=== PATIENT | male | born 1995 | race Caucasian/White ===

== ENCOUNTER 2016-05-09 22:22 | Inpatient (IN) | payer BC ==
[~2016-05-09] VITALS: Ht 172.7 cm; Wt 63.0 kg
[2016-05-09 23:30] LABS: HEMATOCRIT 48.5 % (42-52); MEAN CELL VOLUME 90.7 fL (80-100); MEAN CORPUSCULAR HEMOGLOBIN 33.3 pg (25-34); MEAN CORPUSCULAR HGB CONC 36.7 g/dl (32-36); MEAN PLATELET VOLUME 9.9 fL (7.4-10.4); PLATELET COUNT 370 K/uL (130-400); RED BLOOD COUNT 5.35 M/uL (4.7-6.1); WHITE BLOOD COUNT 13.03 K/uL (4.8-10.8)
--- NOTE | 2016-05-09 23:38 | EMERGENCY ROOM VISIT NOTE ---
History Report prepared by Thania: Mallorie Ramos Under the Supervision of: Dr. Lurdes Conteh D.O. First contact with patient: 23:08 Chief Complaint: MENTAL HEALTH EVALUATION Stated Complaint: 302 History of Present Illness The patient is a 20 year old male who presents to the Emergency Room for a mental health evaluation. The patient states that he does not want to be alive anymore and he does not want to be here. He reports that he is "profoundly bored with life" and has been feeling this way on and off for a couple of months. He notes that he has tried to commit suicide in the past with his dads guns and with knives as well. The patient states that he is usually drinking when he attempts suicide but passes out before he is able to do it. He notes that he has not been in a mental health facility because he does not like to be vulnerable. He states that he works at [employer] and notes that he has been drinking pretty consistently over the last 3 days. The patient states that he has a family history of mental health issues and his mother is an alcoholic. He notes that his left foot is inflamed but he is not sure why and he is experiencing hand pain and swelling after hitting it on something while he was drinking. The patient denies any abdominal pain. Source of History: patient Onset: a couple of months Position: other (mental health) Quality: other (depressed) Timing: constant Associated Symptoms: No abdominal pain Note: He notes that his left foot is inflamed but he is not sure why and he is experiencing hand pain and swelling after hitting it on something while he was drinking. Review of Systems See HPI for pertinent positives & negatives. A total of 10 systems reviewed and were otherwise negative. Past Medical & Surgical Medical Problems: (1) Depression Family History FH: alcoholism Social History Smoking Status: Current Every Day Smoker Drug Use: other (unspecified "history") Marital Status: single Housing Status: lives with friends Occupation Status: employed Current/Historical Medications No Active Prescriptions or Reported Meds Allergies Coded Allergies: Dust (Unverified Allergy, Intermediate, respiratory s/s, 05/10/16) Egg White (Unverified Allergy, Intermediate, GI Distress, 05/10/16) Physical Exam Vital Signs Date Time Temp Pulse Resp B/P Pulse Ox O2 Delivery O2 Flow Rate FiO2 05/10/16 00:20 98 18 135/79 98 Room Air 05/09/16 22:27 36.6 127 16 143/83 97 Room Air Physical Exam General: Very pleasant, smells of alcohol. HEENT: Head - normocephalic and atraumatic Pupils are equal, round, and reactive to light. Extraocular eye muscles are intact, and sclera are anicteric. Nose - moist nasal mucosa without discharge. Mouth - moist buccal mucosa. Oropharynx is nonerythematous and there is no tonsillar exudate or edema noted. Neck: Supple; no JVD, nuchal rigidity, cervical lymphadenopathy. Heart: Regular rate and rhythm. There is a normal S1 and S2 with no murmurs, clicks, or gallops appreciated. Lungs: Clear to auscultation bilaterally with no wheezes, rales, or rhonchi. Abdomen: Soft, completely nontender, nondistended, with good bowel sounds. There are no palpable pulsatile masses or hepatosplenomegaly. There is no guarding, rigidity, or rebound noted. Extremities: No evidence of cyanosis, clubbing. There are easily palpable peripheral pulses. Edema over the left lateral malleolus of his ankle and the thenar eminence of his left hand. Skin: warm and dry with good turgor and no rashes. Psych: Appears significantly depressed, hopeless, and suicidal. Medical Decision & Procedures ER Provider Diagnostic Interpretation: X-ray results as stated below per interpretation by me: Left Ankle X-Ray: Soft tissue edema of the lateral malleolus, no obvious fracture. Laboratory Results 05/09/16 22:47 05/09/16 22:47 Test 05/09/16 00:00 05/09/16 22:47 05/10/16 02:26 Urine Color YELLOW Urine Appearance CLEAR (CLEAR) Urine pH 5.5 (4.5-7.5) Urine Specific [place] 1.012 (1.000-1.030) Urine Protein NEG (NEG) Urine Glucose (UA) 3+ (NEG) Urine Ketones 1+ (NEG) Urine Occult Blood TRACE (NEG) Urine Nitrite NEG (NEG) Urine Bilirubin NEG (NEG) Urine Urobilinogen NEG (NEG) Urine Leukocyte Esterase NEG (NEG) Urine WBC (Auto) 1-5 /hpf (0-5) Urine RBC (Auto) 0-4 /hpf (0-4) Urine Hyaline Casts (Auto) 1-5 /lpf (0-5) Urine Epithelial Cells (Auto) 10-20 /lpf (0-5) Urine Bacteria (Auto) NEG (NEG) Urine Opiates Screen NEG (NEG) Urine Methadone, Qualitative NEG (NEG) Urine Barbiturates NEG (NEG) Urine Phencyclidine (PCP) Level NEG (NEG) Ur Amphetamine/Methamphetamine NEG (NEG) MDMA (Ecstasy) Screen NEG (NEG) Urine Benzodiazepines Screen NEG (NEG) Urine Cocaine Metabolite NEG (NEG) Urine Marijuana (THC) POS (NEG) Red Blood Count 5.35 M/uL (4.7-6.1) Mean Corpuscular Volume 90.7 fL (80-100) Mean Corpuscular Hemoglobin 33.3 pg (25-34) Mean Corpuscular Hemoglobin Concent 36.7 g/dl (32-36) RDW Standard Deviation 43.2 fL (36.4-46.3) RDW Coefficient of Variation 13.1 % (11.5-14.5) Mean Platelet Volume 9.9 fL (7.4-10.4) Anion Gap 16.0 mmol/L (3-11) Est Creatinine Clear Calc Drug Dose 97.4 ml/min Estimated GFR () 109.9 Estimated GFR (Non- 94.8 BUN/Creatinine Ratio 7.8 (10-20) Calcium Level 9.1 mg/dl (8.5-10.1) Total Bilirubin 0.5 mg/dl (0.2-1) Direct Bilirubin < 0.1 mg/dl (0-0.2) Aspartate Amino Transf (AST/SGOT) 22 U/L (15-37) Alanine Aminotransferase (ALT/SGPT) 32 U/L (12-78) Alkaline Phosphatase 70 U/L (45-117) Total Protein 8.6 gm/dl (6.4-8.2) Albumin 4.7 gm/dl (3.4-5.0) Thyroid Stimulating Hormone (TSH) 0.411 uIu/ml (0.300-4.500) Salicylates Level 2.0 mg/dl (2.8-20) Acetaminophen Level < 2 ug/ml (10-30) Ethyl Alcohol mg/dL 143.0 mg/dl (0-3) Bedside Glucose 123 mg/dl (70-99) Laboratory results per my review. ED Course 2313: Past medical records reviewed. The patient was evaluated in room A5. A complete history and physical exam was performed. Labs were drawn as above. 0015: I reevaluated the patient. He has no history of diabetes or family history of diabetes. 0031: I added a hemoglobin A1C to the patient's labs, Since he also has glucosuria 0202: The hemoglobin A1C will not be done tonight. It will be done in the morning. 0222: The patients blood sugar will be repeated to see if it is going up. 0227: The patient's repeat blood sugar was 126. 0335: The patient signed himself in to [address] [place] [address] voluntarily. Medical Decision The patient is a 20 year old male who presents to the ED with ankle pain and a mental health evaluation. Differential diagnosis includes alcohol intoxication, drug abuse, depression, mood disorder, and thought disorder. We will also rule out ankle fracture versus an ankle sprain. LABS: WBC 13 Stable H&H Blood Glucose 252 Potassium 3.2 Normal renal function and TSH Normal LFT Alcohol 143 Acetaminophen <2 Salicylate 2 Urine has 3+ glucose, 1+ ketones, trace occult blood, negative WBC, negative RBC Urine tox screen positive for marijuana This is a 20-year-old male patient who describes a long history of depression and hopelessness. He's had multiple previous thoughts of suicide. The patient has been binge drinking for the past 3 days and presents here slightly intoxicated. Once the patient's blood alcohol level was down, he was evaluated by staff from [facility]. He is willing to admit himself voluntarily for inpatient psychiatric care. Impression Primary Impression: Suicidal ideation Additional Impressions: Hyperglycemia Alcohol intoxication Left ankle sprain Scribe Attestation The scribe's documentation has been prepared under my direction and personally reviewed by me in its entirety. I confirm that the note above accurately reflects all work, treatment, procedures, and medical decision making performed by me. Departure Information Dispostion Mental Health Acute Care Prescriptions No Active Prescriptions or Reported Meds Referrals No Doctor, Assigned (PCP) Patient Instructions My [facility] Problem Qualifiers
[2016-05-09 23:49] LABS: ALT/SGPT 32 U/L (12-78); BLOOD UREA NITROGEN 9 mg/dl (7-18); BUN/CREATININE RATIO 7.8 (10-20); CALCIUM 9.1 mg/dl (8.5-10.1); CARBON DIOXIDE 24 mmol/L (21-32); CHLORIDE 98 mmol/L (98-107); GLUCOSE 252 mg/dl (70-99); POTASSIUM 3.2 mmol/L (3.5-5.1); SODIUM 138 mmol/L (136-145)
[2016-05-09 23:59] LABS: ACETAMINOPHEN < 2 ug/ml (10-30)
[2016-05-10] LABS: ALKALINE PHOSPHATASE 70 U/L (45-117); AST/SGOT 22 U/L (15-37); THYROID STIMULATING HORMONE 0.411 uIu/ml (0.300-4.500)
[2016-05-10 00:26] LABS: URINE APPEARANCE CLEAR (CLEAR); URINE BILIRUBIN NEG (NEG); URINE COLOR YELLOW; URINE NITRITE NEG (NEG); URINE PH 5.5 (4.5-7.5); URINE SPECIFIC GRAVITY 1.012 (1.000-1.030); UROBILINOGEN NEG (NEG)
[2016-05-10 00:27] LABS: MANUAL MICROSCOPIC REQUIRED? NO; REVIEW REQ? NO
[2016-05-10 00:45] LABS: BENZODIAZEPINE, URINE NEG (NEG); COCAINE,URINE NEG (NEG); PHENCYCLIDINE, URINE NEG (NEG)
[2016-05-10] MEDS ORDERED: NURSING VERBAL MED ORDER ONE (03:15)
[2016-05-10] MEDS ORDERED: LORAZEPAM 1 MG TAB PO PRN (03:45)
[2016-05-10] MEDS ORDERED: MAGNESIUM HYDROXIDE SUSP 30 ML UDC PO PRN (03:45)
[2016-05-10] MEDS ORDERED: ALUMINUM/MAGNESIUM SUSP 30 ML UDC PO PRN (03:45)
[2016-05-10] MEDS ORDERED: SODIUM CHLORIDE 0.65% NA SOLN 45 ML (OCEAN) PRN (03:45)
[2016-05-10] MEDS ORDERED: BISMUTH SUBSALICYLATE PER ML OMNICELL CHARGE PO PRN (03:45)
[2016-05-10 03:58] VITALS: O2SAT 98
[2016-05-10 04:12] VITALS: BP 137/80; PULSE 104; TEMP 36.9; Ht 172.7 cm; Wt 63.0 kg
[2016-05-10 06:10] LABS: ESTIMATED AVERAGE GLUCOSE 97 mg/dl; HA1C FLAG Normal (Normal)
[2016-05-10] MEDS: ACETAMINOPHEN 325 MG TAB PO PRN ×2 (06:21→23:40)
--- NOTE | 2016-05-10 06:40 | DIAGNOSTIC IMAGING REPORT ---
LEFT ANKLE MIN 3 VIEWS ROUTINE CLINICAL HISTORY: Trauma and swelling lateral COMPARISON: None FINDINGS: Alignment of the left ankle is anatomic. There is no acute fracture. Talar dome is intact. There is mild lateral ankle soft tissue swelling. IMPRESSION: 1. No acute fracture or dislocation of the left ankle. 2. Mild lateral ankle soft tissue swelling. Electronically signed by: Ike Hernandez M.D. 05/10/2016 6:38 AM Dictated Date/Time: 05/10/2016 6:37 AM
[2016-05-10 08:05] VITALS: BP 116/74; PULSE 79; TEMP 36.4
[2016-05-10] MEDS: NICOTINE 21 MG/24 HR TDSY EXT SCH (08:46)
[2016-05-10 12:14] VITALS: BP 134/81; PULSE 111; TEMP 36.5
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
[2016-05-10 16:03] VITALS: BP 129/85; PULSE 96; TEMP 37
[2016-05-10 20:42] VITALS: BP 134/79; PULSE 93; TEMP 36.3
[2016-05-10] MEDS: hydrOXYzine HCL 25 MG TAB PO PRN (23:39)
[2016-05-11 06:41] VITALS: BP_SYST 116; BP_SYST 118; BP_DIAS 62; BP_DIAS 73; PULSE 43; PULSE 52; TEMP 36.6
[2016-05-11] MEDS: hydrOXYzine HCL 25 MG TAB PO PRN ×3 (07:10→23:37)
[2016-05-11] MEDS: NICOTINE 21 MG/24 HR TDSY EXT SCH (07:14)
[2016-05-11 07:52] LABS: POTASSIUM 3.7 mmol/L (3.5-5.1)
[2016-05-11 08:14] VITALS: BP 122/75; PULSE 88; TEMP 36.6
--- NOTE | 2016-05-11 11:42 | Psychiatric Progress Notes ---
Progress Note Date of Service May 11, 2016. Interval History 20 yo male admitted 05/10 on a voluntary basis with a back up 302 petitioners statement, with severe depression and suicidality along with significant substance abuse. He has recently gone through several breakups, lost a job and sees his life in a downward spiral. Chief Complaint "Up and down, but better.". Subjective Patient was seen & assessed interval progress reviewed with Treatment Team. The patient says that he had a good visit from his father last evening. He told his father of the substance use and his father was not judgemental. Father admitted that he himself had made a suicide attempt at one point in his life. Yan feels well supported by his father, and several friends who came to visit him as well. He has been thinking about his treatment options and has decided that its a good idea to go on an antidepressant, but does not want to go to rehab. He wants to try to avoid people in his life who are using, and to focus on productive activities such as work and trying to get ahead financially. He admits that he had SI thoughts this AM when he awoke but after getting some breakfast and showering he felt better. Review of Systems Constitutional: + fatigue ENT: No dental problems, No hearing loss, No nasal symptoms, No problem reported, No sore throat, No tinnitus, No trouble swallowing, No unusual epistaxis Respiratory: No cough, No dyspnea at rest, No dyspnea on exertion, No hemoptysis, No problem reported, No shortness of breath, No sputum, No wheezing Cardiovascular: No PND, No chest pain, No claudication, No edema, No orthopnea , No palpitations, No problem reported Abdomen: No GI bleeding, No constipation, No diarrhea, No nausea, No pain, No problem reported, No vomiting Musculoskeletal: + problem reported (rt ankle pain) Neurologic: No balance problems, No memory loss, No numbness/tingling, No paralysis, No problem reported, No vertigo, No weakness Psychiatric: + anxiety, + depression symptoms Integumentary: No bleeding, No color change, No itch, No new/changing skin lesions, No problem reported, No rash Sleep Information Total Hours of Sleep: 5.50 Meal Information Percent of Breakfast Consumed: 80 Percent of Lunch Consumed: 100 Percent of Dinner Consumed: 100 Mental Status Exam During interview pt is: alert and oriented, cooperative Appearance: appropriately dressed, appropriately groomed Eye contact is: good Motor behavior is: steady gait & station (with slight limp) Speech: normal in rate, rhythm & volume Affect: blunted Mood is: depressed Thought process: goal directed Thought content: reality based without delusions Suicidal thought are: present, Plan: denied, Intent: denied Homicidal thoughts are: denied Hallucinations: denies auditory, denies visual Cognition: memory grossly intact, attention grossly intact Intelligence estimated to be: average Insight: impaired Judgement: impaired Impression Patient is adjusting to the support and structure of the unit. Finding support from father and friends. Now willing for meds and so will start Zoloft 25 mg. today increasing to 50 mg. tomorrow. R/B/A reviewed and accepted. He is refusing rehab but willing to go to IOP, so will proceed with a referral. He will also need psychiatric follow up. Plan (1) Major depressive disorder, recurrent severe without psychotic features 05/11 - Start Zoloft 25 mg. today increasing to 50 mg. tomorrow - Q 15 min checks for safety - Encourage participation in group and individual counseling - Will need psychiatric follow up - Family meeting (2) Alcohol dependence 05/11 - AWSS using prn ativan - Recommend inpatient rehab which the patient is refusing - Willing for IOP, so will make referral - Recovery protocol (3) Polysubstance abuse 05/11 - REcommend rehab which he is refusing - Willing for IOP so will make referral - Recovery protocol Discharge / Aftercare Planning Primary Care Physician: Name: none, in [facility] though Therapist: Name: Would like to see Virgil Cabrales Visit Code E&M Code: 14501 Risk Factors Assessment Male: Yes : Yes /single/: Yes Higher / Fall in social status: No Access to guns: No Health problems: No Mental Health Diagnoses: No Substance use disorders: Yes Previous attempt: No Previous psychiatric stay: No Hopelessness: Yes Smoker: Yes Protective Factors Assessment Jainism beliefs: Yes : No Responsible for young children: No Employed: Yes Stable relationships: No Supportive family: Yes Data Vital Signs Last 24 Hrs: Date Time Temp Pulse Resp B/P Pulse Ox O2 Delivery O2 Flow Rate FiO2 05/11/16 08:14 36.6 88 16 122/75 05/11/16 06:41 36.6 43 16 116/73 52 118/62 05/10/16 20:42 36.3 93 16 134/79 05/10/16 16:03 37.0 96 16 129/85 05/10/16 12:14 36.5 111 16 134/81 Meds Administered Last 24 Hrs: Meds Administered (Past 24Hrs) Medications (Trade) Dose Ordered Sig/Baljeet Route Start Time Stop Time Status Last Admin Dose Admin Acetaminophen (Tylenol Tab) 650 mg Q4H PRN PO 05/10/16 03:45 06/09/16 03:44 05/10/16 23:40 650 MG Hydroxyzine HCl (Vistaril Tab) 50 mg HSZ PRN PO 05/10/16 03:45 06/09/16 03:44 05/10/16 23:39 50 MG Hydroxyzine HCl (Vistaril Tab) 25 mg Q4H PRN PO 05/10/16 03:45 06/09/16 03:44 05/11/16 07:10 25 MG Nicotine (Nicoderm Cq 21MG Patch) 1 patch QAM EXT 05/10/16 09:00 06/09/16 08:59 05/11/16 07:14 1 PATCH Miscellaneous (Remove Nicoderm Patch) 1 ea QAM N/A 05/11/16 09:00 06/10/16 08:59 05/11/16 07:11 1 EA Lab Results Last 24 Hrs: Last 24 Hours Test 05/11/16 07:00 Potassium Level 3.7 mmol/L Fasting Glucose 93 mg/dl Problem Qualifiers (1) Alcohol dependence: Substance use status: uncomplicated Qualified Codes: F10.20 - Alcohol dependence, uncomplicated
[2016-05-11] MEDS ORDERED: SERTRALINE HCL 50 MG TAB PO ONE (12:00)
[2016-05-11 12:42] VITALS: BP 131/81; PULSE 103; TEMP 36.6
[2016-05-11 16:01] VITALS: BP 126/80; PULSE 95; TEMP 36.3
[2016-05-11 18:05] VITALS: BP 133/79; PULSE 98; TEMP 36.5
[2016-05-11 20:43] VITALS: BP 133/82; PULSE 98; TEMP 36.5
[2016-05-11] MEDS: ACETAMINOPHEN 325 MG TAB PO PRN (23:05)
[2016-05-12 06:48] VITALS: BP 114/76; PULSE 76; TEMP 36.5
--- NOTE | 2016-05-12 09:04 | Psychiatric Progress Notes ---
Progress Note Date of Service May 12, 2016. Interval History 20 yo male admitted 05/10 on a voluntary basis with a back up 302 petitioners statement, with severe depression and suicidality along with significant substance abuse. He has recently gone through several breakups, lost a job and sees his life in a downward spiral. Chief Complaint "Better". Subjective Patient was seen & assessed interval progress reviewed with staff. He is going to groups, but shows poor insight into his substance abuse. He says he is " doing well, just catching up on some sleep, feeling good." He says he is working on coping skills and "figuring out triggers, how to stay away from those." He thinks his triggers are "predisposition to narcotics, and suicidal tendencies." He reports "a lack of motivation to live" when he is feeling suicidal, "keep finding more excuses as to why you're life is bad, just analyzing how awful everything is." His mood is improving here, he thinks due to talking to others. He says he "wouldn't mind increasing the Zoloft, I took it yesterday and it did help. I think I might need an ADHD medication." Discussed concerns with stimulants and that they are contraindicated due to his addictions. He says he is willing to see outpatient providers only if they fit into his time schedule, and is willing to admit he might benefit from getting substance abuse treatment, and says he is willing to be stop using. His father is coming in for a meeting this afternoon and he wants to talk to him about "everything, see what he would suggest for treatment." He continues to have SI, but it is less intense and lasts about 5 minutes, but denies intent and feels safe here. He thinks his substance abuse triggered his SI. Sleep Information Total Hours of Sleep: 5.50 Meal Information Percent of Breakfast Consumed: 80 Percent of Lunch Consumed: 100 Percent of Dinner Consumed: 95 Mental Status Exam During interview pt is: alert and oriented, cooperative Appearance: appropriately dressed, disheveled (got out of bed for interview) Eye contact is: good Motor behavior is: steady gait & station, no abnormal motor movements Speech: normal in rate, rhythm & volume Affect: blunted (incongruent with stated mood) Mood is: other ("better") Thought process: goal directed Thought content: reality based without delusions Suicidal thought are: present, Plan: denied, Intent: denied Homicidal thoughts are: denied Hallucinations: denies auditory, denies visual Cognition: memory grossly intact, attention grossly intact Intelligence estimated to be: average Insight: impaired Judgement: impaired Impression Patient is adjusting to the support and structure of the unit. Finding support from father and friends. Now willing for meds and so will start Zoloft 25 mg. today increasing to 50 mg. tomorrow. R/B/A reviewed and accepted. He is refusing rehab but willing to go to [facility], so will proceed with a referral. He will also need psychiatric follow up. Plan (1) Major depressive disorder, recurrent severe without psychotic features 05/11 - Start Zoloft 25 mg. today increasing to 50 mg. tomorrow - Q 15 min checks for safety - Encourage participation in group and individual counseling - Will need psychiatric follow up - Family meeting 05/12 - Increase sertraline to 50mg, tolerating well so far. - Family meeting with father. (2) Alcohol dependence 05/11 - AWSS using prn ativan - Recommend inpatient rehab which the patient is refusing - Willing for IOP, so will make referral - Recovery protocol 05/12 - Scored on withdrawal protocol and received Ativan with good effects. Still mildly tachycardic. Continue to monitor. - The patient's AUDIT score suggests problematic drinking (Zone III WHO). Brief intervention was offered and accepted. Intervention was greater than 5 min in length. - Intervention included: 1. Assess Readiness to Quit, 2. Advise: Help Patient to Reduce or Abstain from Alcohol, 3. Agree: Set Specific, Feasible Goals, 4. Assist: Anticipate barriers, Problem-Solving Solutions. Social work to 5. Arrange: Referrals to appropriate treatment. Summary of intervention: The patient is advised to abstain from alcohol due to depressant effects, physiological dependence, and risk of interactions with prescription medications. The patient agreed to abstain from alcohol and drug use, and will be provided with recovery materials to continue to education self on how to cope with their condition without drinking. - Being referred to [facility] substance abuse treatment. (3) Polysubstance abuse 05/11 - Recommend rehab which he is refusing - Willing for IOP so will make referral - Recovery protocol 05/12 - Again reviewed risks of ongoing substance abuse and recommendations for abstinence. Patient states he agrees his drug use is negatively impacting his mood and contributing to his SI. He is willing to abstain per recommendations. - He is being referred to IOP. Encouraged to accept whatever help he can get , despite his earlier statements that he would only go if appointments could be scheduled during specific timeframe that suited his schedule. Also encouraged use of peer support groups such as NA and AA which may have more flexible time options. Discharge / Aftercare Planning Primary Care Physician: Name: none, in [facility] though Therapist: Name: Would like to see Virgil Cabrales Visit Code E&M Code: 04836 Risk Factors Assessment Male: Yes : Yes /single/: Yes Higher / Fall in social status: No Access to guns: No Health problems: No Mental Health Diagnoses: No Substance use disorders: Yes Previous attempt: No Previous psychiatric stay: No Hopelessness: Yes Smoker: Yes Protective Factors Assessment Rastafari beliefs: Yes : No Responsible for young children: No Employed: Yes Stable relationships: No Supportive family: Yes Data Vital Signs Last 24 Hrs: Date Time Temp Pulse Resp B/P Pulse Ox O2 Delivery O2 Flow Rate FiO2 05/12/16 06:48 36.5 76 16 114/76 05/11/16 20:43 36.5 98 16 133/82 05/11/16 18:05 36.5 98 16 133/79 05/11/16 16:01 36.3 95 16 126/80 05/11/16 12:42 36.6 103 16 131/81 Meds Administered Last 24 Hrs: Meds Administered (Past 24Hrs) Medications (Trade) Dose Ordered Sig/Baljeet Route Start Time Stop Time Status Last Admin Dose Admin Nicotine (Nicoderm Cq 21MG Patch) 1 patch QAM EXT 05/10/16 09:00 06/09/16 08:59 05/11/16 07:14 1 PATCH Miscellaneous (Remove Nicoderm Patch) 1 ea QAM N/A 05/11/16 09:00 06/10/16 08:59 05/11/16 07:11 1 EA Sertraline HCl (Zoloft Tab) 25 mg NOW ONCE PO 05/11/16 12:00 05/11/16 12:01 DC 05/11/16 12:25 25 MG Problem Qualifiers (1) Alcohol dependence: Substance use status: uncomplicated Qualified Codes: F10.20 - Alcohol dependence, uncomplicated
[2016-05-12 09:34] VITALS: BP 140/83; PULSE 88; TEMP 37
[2016-05-12] MEDS: NICOTINE 21 MG/24 HR TDSY EXT SCH (09:35)
[2016-05-12] MEDS: SERTRALINE HCL 50 MG TAB PO SCH (09:35)
[2016-05-12] MEDS: hydrOXYzine HCL 25 MG TAB PO PRN ×4 (11:03→23:50)
[2016-05-12 12:35] VITALS: BP 106/74; PULSE 79; TEMP 36.4
[2016-05-12] MEDS: ACETAMINOPHEN 325 MG TAB PO PRN (15:58)
[2016-05-12 16:08] VITALS: BP 125/75; PULSE 96; TEMP 37.2
[2016-05-12 20:14] VITALS: BP 123/85; PULSE 91; TEMP 36.5
[2016-05-13 07:02] VITALS: BP_SYST 112; BP_SYST 114; BP_DIAS 73; BP_DIAS 75; PULSE 66; PULSE 72; TEMP 36.4
[2016-05-13] MEDS: NICOTINE 21 MG/24 HR TDSY EXT SCH (09:19)
[2016-05-13] MEDS: SERTRALINE HCL 50 MG TAB PO SCH (09:19)
[2016-05-13] MEDS ORDERED: ZLF50 PO (09:20)
[2016-05-13 09:22] VITALS: BP 131/80; PULSE 90; TEMP 36.6
--- NOTE | 2016-05-13 09:30 | Discharge Instructions ---
Discharge Information Report Includes Report will include the: Discharge Instructions & Summary Admission Admission Date / Time: May 10, 2016 at 03:29 Reason for Admission: Major Depressive Disorder, Recurrent Discharge Discharge Diagnosis / Problem: Depression, alcohol dependence, polysubstance abuse Condition at Discharge: Good Discharge Goals Goal(s): Decrease discomfort, Improve disease control, Prevent Disease Progression Activity Recommendations Activity Limitations: resume your previous activity . Instructions / Follow-Up Instructions / Follow-Up . SPECIAL CARE INSTRUCTIONS: 1. Follow through with your scheduled aftercare appointments. If unable to keep an appointment, please call to reschedule. 2. Take your medication only as prescribed. Medication should not be changed or stopped without the approval of your doctor. In the event of worsening symptoms or concerns about side effects, contact your doctor immediately. 3. Utilize new healthy coping skills, anger management skills, and stress management skills learned during your hospitalization. Journal feelings and process them with a support person. Identify stressors or situations that may result in relapse, deterioration or inappropriate behaviors and develop a plan to deal with those issues. 4. If your coping skills are ineffective and you are in crisis, contact your outpatient providers for direction. If unable to reach your providers, please call the CAN HELP LINE AT or go to the closest Emergency Room. 5. Avoid alcohol and un-prescribed drugs. 6. You have been provided with the Mental Health Advance Directives Pamphlet for your review. AFTERCARE APPOINTMENTS: * Please call your insurance company prior to your scheduled appointment to confirm your aftercare providers are covered. Take your insurance information to your appointments. . Discharge / Aftercare Planning Primary Care Physician: Name: [facility]. [facility] Date of Appointment: Jun 02, 2016 Time of Appointment: 10:10 Appointment Notes: (new pt appt) Psychiatrist: Name: Ada will schedule after you maintain services for therapy Therapist: Name Of Therapist: Radha Caballero Date of Appointment: May 17, 2016 Time of Appointment: 8:45am Other: Name of Appointment #1: Ada [address] [place] [address], [address] Date of Appointment #1: May 17, 2016 Time of Appointment #1: 8:45 . Follow-Up Care Plan for Follow-Up Care: The patient will have prompt follow up with [facility] for psychiatric and substance use treatment. Current Hospital Diet Patient's current hospital diet: Regular Diet Discharge Diet Recommended Diet: Regular Diet Procedures Procedures Performed: No Pending Studies Pending Studies at Discharge: No Medical Emergencies . Who to Call and When: Medical Emergencies: For questions or emergencies related to your hospital stay, please contact the Inpatient Behavioral Health Unit at [phone]. A stem processing machine operator is on-call 14/11 for the Behavioral Health Unit for emergencies At any time you feel your situation is an emergency, you may also call 911 immediately. . Non-Emergent Contact Non-Emergency issues call your: Primary Care Provider, Therapist Advance Directives Existing Advance Directive: No Do You Have an Existing Mental: No Existing Living Will: No Existing Power of Shoe Salesman: No Advance Directives Info Given: To Pt/S.O. Discharge Summary Admission HPI Per the Admitting provider: Please see attached H&P Hospital Course (1) Major depressive disorder, recurrent severe without psychotic features 05/11 - Start Zoloft 25 mg. today increasing to 50 mg. tomorrow - Q 15 min checks for safety - Encourage participation in group and individual counseling - Will need psychiatric follow up - Family meeting 05/12 - Increase sertraline to 50mg, tolerating well so far. - Family meeting with father. (2) Alcohol dependence 05/11 - AWSS using prn ativan - Recommend inpatient rehab which the patient is refusing - Willing for IOP, so will make referral - Recovery protocol 05/12 - Scored on withdrawal protocol and received Ativan with good effects. Still mildly tachycardic. Continue to monitor. - The patient's AUDIT score suggests problematic drinking (Zone III WHO). Brief intervention was offered and accepted. Intervention was greater than 5 min in length. - Intervention included: 1. Assess Readiness to Quit, 2. Advise: Help Patient to Reduce or Abstain from Alcohol, 3. Agree: Set Specific, Feasible Goals, 4. Assist: Anticipate barriers, Problem-Solving Solutions. Social work to 5. Arrange: Referrals to appropriate treatment. Summary of intervention: The patient is advised to abstain from alcohol due to depressant effects, physiological dependence, and risk of interactions with prescription medications. The patient agreed to abstain from alcohol and drug use, and will be provided with recovery materials to continue to education self on how to cope with their condition without drinking. - Being referred to [facility] substance abuse treatment. (3) Polysubstance abuse 05/11 - Recommend rehab which he is refusing - Willing for [facility] so will make referral - Recovery protocol 05/12 - Again reviewed risks of ongoing substance abuse and recommendations for abstinence. Patient states he agrees his drug use is negatively impacting his mood and contributing to his SI. He is willing to abstain per recommendations. - He is being referred to [facility]. Encouraged to accept whatever help he can get , despite his earlier statements that he would only go if appointments could be scheduled during specific timeframe that suited his schedule. Also encouraged use of peer support groups such as NA and AA which may have more flexible time options. Risk Factors Assessment Male: Yes : Yes /single/: Yes Higher / Fall in social status: No Access to guns: No Health problems: No Mental Health Diagnoses: No Substance use disorders: Yes Previous attempt: No Previous psychiatric stay: No Hopelessness: Yes Smoker: Yes Protective Factors Assessment Gnosticist beliefs: Yes : No Responsible for young children: No Employed: Yes Stable relationships: No Supportive family: Yes Day of Discharge Assessment COURSE OF HOSPITALIZATION: During the patient's 3 day stay, he was started on Zoloft 50 mg and tolerated this without side effect. He had been increasingly depressed over time in the context of multiple breakups with girlfriends and ongoing substance use most specifically alcohol, marijuana, cocaine, LSD, mushrooms, and will nitrate, and Adderall. We put him on an AWSS withdrawal protocol and did not trigger the use of benzodiazepines. He made good use of group and individual therapy, recognizing that he needs to be in treatment and avoid substances. We recommended inpatient rehabilitation which he refused but was willing to participate in outpatient counseling and therefore [facility]. He recognizes the need to change the people he hangs out with. He was motivated to return to his work at [employer] and in addition had plans for other ways that he can improve his financial situation. He ceased to have suicidal ideation, reported improved mood and felt ready for discharge. DAY OF DISCHARGE ASSESSMENT: The patient is requesting discharge. He says that his mood is "good" and he feels ready to go home. He would like to return to work as soon as possible. He had a family meeting with his father yesterday which she described as "fantastic" and feels well supported by him. He remains committed to sobriety, denies suicidal thinking. Today he is casually and appropriately dressed. Eye contact is good. Gait and station are within normal limits. Speech is of normal rate volume and tone. Affect remains blunted. Thoughts are organized and goal-directed, and without evidence of thought disorder. Recent and remote memory are intact per conversation, intelligence is estimated to be average. Insight and judgment are improved over admission. Laboratory 05/09/16 22:47 05/09/16 22:47 05/11/16 07:00 Test 05/09/16 00:00 05/09/16 22:47 05/10/16 02:26 05/11/16 07:00 Urine Color YELLOW Urine Appearance CLEAR (CLEAR) Urine pH 5.5 (4.5-7.5) Urine Specific [place] 1.012 (1.000-1.030) Urine Protein NEG (NEG) Urine Glucose (UA) 3+ (NEG) Urine Ketones 1+ (NEG) Urine Occult Blood TRACE (NEG) Urine Nitrite NEG (NEG) Urine Bilirubin NEG (NEG) Urine Urobilinogen NEG (NEG) Urine Leukocyte Esterase NEG (NEG) Urine WBC (Auto) 1-5 /hpf (0-5) Urine RBC (Auto) 0-4 /hpf (0-4) Urine Hyaline Casts (Auto) 1-5 /lpf (0-5) Urine Epithelial Cells (Auto) 10-20 /lpf (0-5) Urine Bacteria (Auto) NEG (NEG) Urine Opiates Screen NEG (NEG) Urine Methadone, Qualitative NEG (NEG) Urine Barbiturates NEG (NEG) Urine Phencyclidine (PCP) Level NEG (NEG) Ur Amphetamine/Methamphetamine NEG (NEG) MDMA (Ecstasy) Screen NEG (NEG) Urine Benzodiazepines Screen NEG (NEG) Urine Cocaine Metabolite NEG (NEG) Urine Marijuana (THC) POS (NEG) Urine Marijuana (THC Carboxy Acid) 44 NG/ML (CUTOFF=5) Red Blood Count 5.35 M/uL (4.7-6.1) Mean Corpuscular Volume 90.7 fL (80-100) Mean Corpuscular Hemoglobin 33.3 pg (25-34) Mean Corpuscular Hemoglobin Concent 36.7 g/dl (32-36) RDW Standard Deviation 43.2 fL (36.4-46.3) RDW Coefficient of Variation 13.1 % (11.5-14.5) Mean Platelet Volume 9.9 fL (7.4-10.4) Anion Gap 16.0 mmol/L (3-11) Est Creatinine Clear Calc Drug Dose 97.4 ml/min Estimated GFR () 109.9 Estimated GFR (Non- 94.8 BUN/Creatinine Ratio 7.8 (10-20) Estimated Average Glucose 97 mg/dl Hemoglobin A1c 5.0 % (4.5-5.6) Calcium Level 9.1 mg/dl (8.5-10.1) Total Bilirubin 0.5 mg/dl (0.2-1) Direct Bilirubin < 0.1 mg/dl (0-0.2) Aspartate Amino Transf (AST/SGOT) 22 U/L (15-37) Alanine Aminotransferase (ALT/SGPT) 32 U/L (12-78) Alkaline Phosphatase 70 U/L (45-117) Total Protein 8.6 gm/dl (6.4-8.2) Albumin 4.7 gm/dl (3.4-5.0) Thyroid Stimulating Hormone (TSH) 0.411 uIu/ml (0.300-4.500) Salicylates Level 2.0 mg/dl (2.8-20) Acetaminophen Level < 2 ug/ml (10-30) Ethyl Alcohol mg/dL 143.0 mg/dl (0-3) Bedside Glucose 123 mg/dl (70-99) Fasting Glucose 93 mg/dl (70-99) Total Time Total Time Spent (min): Greater than 30 minutes Total Time Included: examination of the patient, discharge planning, medication reconciliation, communication with other providers Tobacco Cessation at Discharge FDA approved Prescription: patient refused Problem Qualifiers (1) Alcohol dependence: Substance use status: uncomplicated Qualified Codes: F10.20 - Alcohol dependence, uncomplicated
== END 2016-05-13 11:53 | disposition home or self-care (01) | DRG 885 ==
LOC: C.EDB 22:23 → C.MHU 05-10 03:29
PROVIDERS: ADMIT Psychiatry & Neurology Child & Adolescent Psychiatry; ATTEND Psychiatry & Neurology Psychiatry
DX: F33.2 Major depressive disorder, recurrent severe without psychotic features (principal); R45.851 Suicidal ideations; F90.9 Attention-deficit hyperactivity disorder, unspecified type; F41.9 Anxiety disorder, unspecified; Z91.048 Other nonmedicinal substance allergy status; Z91.012 Allergy to eggs; F17.210 Nicotine dependence, cigarettes, uncomplicated; Z81.8 Family history of other mental and behavioral disorders; Z81.1 Family history of alcohol abuse and dependence; Z84.89 Family history of other specified conditions; Z62.810 Personal history of physical and sexual abuse in childhood; F10.20 Alcohol dependence, uncomplicated; F19.10 Other psychoactive substance abuse, uncomplicated; R00.0 Tachycardia, unspecified

== ENCOUNTER 2016-08-06 20:44 | Inpatient (IN) | payer BC ==
[~2016-08-06] VITALS: Ht 172.7 cm; Wt 62.4 kg
[~2016-08-06 20:44] MED LIST: ZLF50 PO
[2016-08-06] MEDS ORDERED: ONDANSETRON 4MG OD TAB PO ONE (21:15)
--- NOTE | 2016-08-06 21:16 | EMERGENCY ROOM VISIT NOTE ---
History Report prepared by Thania: Chandler Kelly Under the Supervision of: Dr. Amor Simon D.O. First contact with patient: 20:51 Chief Complaint: MENTAL HEALTH EVALUATION Stated Complaint: 302,DRUNK History of Present Illness The patient is a 21 year old male who presents to the Emergency Room for a mental health evaluation. The patient was admitted here in [address] [place] [address] three months ago. He was discharged with a months worth of Zoloft and the diagnosis of Manic Bipolar disorder. He states that the medication did not help him, and he stopped taking it after the first month. The patient began drinking alcohol 9 hours ago. About an hour ago, he was with his friends telling them that he was going to kill himself and to prepare themselves for it. He states that he was going to slice his throat with a knife. Nothing in particular caused him to make this decision. He said that it is an accumulation of life events. Tonight, he drank beer and liquor. He has a past social history of using many illicit drugs, but claims to not have taken any tonight. He denies any IV drug use. He was vomiting and is very nauseated. He says that he tends to drink alcohol every single day and that he is an alcoholic. He does not take any other medications. His only past surgery was an occipital skull fracture repair. He has only had broken bones in the past. His girlfriend called the police tonight before the patient could hurt himself. Source of History: patient Onset: tonight Position: other (global) Symptom Intensity: severe Quality: other (mental health evaluation) Timing: constant Associated Symptoms: + nausea, + vomiting Note: He has a suicidal ideation. He denies any homicidal ideation. Review of Systems See HPI for pertinent positives & negatives. A total of 10 systems reviewed and were otherwise negative. Past Medical & Surgical Medical Problems: (1) Alcohol dependence (2) Depression (3) Polysubstance abuse Family History FH: alcoholism Social History Smoking Status: Current Every Day Smoker Alcohol Use: occasionally Drug Use: other Marital Status: single Housing Status: lives with friends Occupation Status: employed Current/Historical Medications Scheduled Sertraline (Zoloft), 50 MG PO DAILY Allergies Coded Allergies: Dust (Unverified Allergy, Intermediate, respiratory s/s, 08/06/16) Egg White (Unverified Allergy, Intermediate, GI Distress, 08/06/16) Shellfish (Unverified Allergy, Unknown, unknown, 08/07/16) Physical Exam Vital Signs Date Time Temp Pulse Resp B/P Pulse Ox O2 Delivery O2 Flow Rate FiO2 08/07/16 04:30 111 16 118/53 97 Room Air 08/07/16 02:10 80 18 128/76 97 Room Air 08/07/16 00:17 78 20 134/91 98 Room Air 08/06/16 22:52 76 20 116/73 97 Room Air 08/06/16 20:47 36.6 118 16 142/85 95 Room Air Physical Exam GENERAL: Patient is awake, alert, mildly anxious appearing, but overall comfortable in appearance. Able to ambulate without difficulty. EYES: The conjunctivae are clear. The pupils are round and reactive. EARS, NOSE, MOUTH AND THROAT: The nose is without any evidence of any deformity. Mucous membranes are moist tongue is midline NECK: The neck is nontender and supple. RESPIRATORY: Normal respiratory effort is noted there is no evidence of wheezing rhonchi or rales CARDIOVASCULAR: Regular rate and rhythm noted there no murmurs rubs or gallops normal S1 normal S2 GASTROINTESTINAL: The abdomen is soft. Bowel sounds are present in all quadrants. Abdomen is nontender MUSCULOSKELETAL/EXTREMITIES: There is no evidence of gross deformity full range of motion is noted in the hips and shoulders SKIN: There is no obvious evidence of any rash. There are no petechiae, pallor or cyanosis noted. NEUROLOGIC: Patient is awake alert and oriented x3 strength is symmetric patellar reflexes are 2+ bilaterally PSYCH: Affect was flat, patient continues to admit suicidal ideation with plans to cut himself. He makes good eye contact. Medical Decision & Procedures Laboratory Results 08/06/16 21:36 Red Blood Count 5.32, Mean Corpuscular Volume 90.8, Mean Corpuscular Hemoglobin 32.3, Mean Corpuscular Hemoglobin Concent 35.6, Mean Platelet Volume 9.4, Neutrophils (%) (Auto) 77.1, Lymphocytes (%) (Auto) 18.5, Monocytes (%) (Auto) 3.6, Eosinophils (%) (Auto) 0.2, Basophils (%) (Auto) 0.2, Neutrophils # (Auto) 15.12, Lymphocytes # (Auto) 3.62, Monocytes # (Auto) 0.70, Eosinophils # (Auto) 0.03, Basophils # (Auto) 0.03 08/06/16 21:36 Test 08/06/16 21:36 08/07/16 00:08 08/07/16 04:40 White Blood Count 19.58 K/uL (4.8-10.8) Red Blood Count 5.32 M/uL (4.7-6.1) Hemoglobin 17.2 g/dL (14.0-18.0) Hematocrit 48.3 % (42-52) Mean Corpuscular Volume 90.8 fL (80-100) Mean Corpuscular Hemoglobin 32.3 pg (25-34) Mean Corpuscular Hemoglobin Concent 35.6 g/dl (32-36) Platelet Count 352 K/uL (130-400) Mean Platelet Volume 9.4 fL (7.4-10.4) Neutrophils (%) (Auto) 77.1 % Lymphocytes (%) (Auto) 18.5 % Monocytes (%) (Auto) 3.6 % Eosinophils (%) (Auto) 0.2 % Basophils (%) (Auto) 0.2 % Neutrophils # (Auto) 15.12 K/uL (1.4-6.5) Lymphocytes # (Auto) 3.62 K/uL (1.2-3.4) Monocytes # (Auto) 0.70 K/uL (0.11-0.59) Eosinophils # (Auto) 0.03 K/uL (0-0.5) Basophils # (Auto) 0.03 K/uL (0-0.2) RDW Standard Deviation 42.8 fL (36.4-46.3) RDW Coefficient of Variation 12.8 % (11.5-14.5) Immature Granulocyte % (Auto) 0.4 % Immature Granulocyte # (Auto) 0.08 K/uL (0.00-0.02) Anion Gap 17.0 mmol/L (3-11) Est Creatinine Clear Calc Drug Dose 92.2 ml/min Estimated GFR () 109.1 Estimated GFR (Non- 94.1 BUN/Creatinine Ratio 13.5 (10-20) Calcium Level 9.5 mg/dl (8.5-10.1) Total Bilirubin 0.5 mg/dl (0.2-1) Direct Bilirubin 0.1 mg/dl (0-0.2) Aspartate Amino Transf (AST/SGOT) 33 U/L (15-37) Alanine Aminotransferase (ALT/SGPT) 36 U/L (12-78) Alkaline Phosphatase 76 U/L (45-117) Total Protein 8.8 gm/dl (6.4-8.2) Albumin 5.2 gm/dl (3.4-5.0) Thyroid Stimulating Hormone (TSH) 0.280 uIu/ml (0.300-4.500) Free Thyroxine 1.27 ng/dl (0.80-1.60) Ethyl Alcohol mg/dL 262.0 mg/dl (0-3) Bedside Glucose 93 mg/dl (70-99) Urine Color YELLOW Urine Appearance CLEAR (CLEAR) Urine pH 5.0 (4.5-7.5) Urine Specific [place] 1.028 (1.000-1.030) Urine Protein NEG (NEG) Urine Glucose (UA) 3+ (NEG) Urine Ketones 3+ (NEG) Urine Occult Blood NEG (NEG) Urine Nitrite NEG (NEG) Urine Bilirubin NEG (NEG) Urine Urobilinogen NEG (NEG) Urine Leukocyte Esterase NEG (NEG) Urine Opiates Screen NEG (NEG) Urine Methadone, Qualitative NEG (NEG) Urine Barbiturates NEG (NEG) Urine Phencyclidine (PCP) Level NEG (NEG) Ur Amphetamine/Methamphetamine NEG (NEG) MDMA (Ecstasy) Screen NEG (NEG) Urine Benzodiazepines Screen NEG (NEG) Urine Cocaine Metabolite NEG (NEG) Urine Marijuana (THC) POS (NEG) Laboratory results per my review. Medications Administered Medications (Trade) Dose Ordered Sig/Baljeet Route Start Time Stop Time Status Last Admin Dose Admin Ondansetron HCl 4 mg 4 mg ONE ONCE PO 08/06/16 21:15 08/06/16 21:16 DC 08/06/16 21:18 4 MG Multivitamins 10 ml/Thiamine HCl 100 mg/Folic Acid 1 mg/Sodium Chloride 1,011.2 ml @ 500 mls/ hr Q2H2M ONCE IV 08/07/16 00:15 08/07/16 02:16 DC 08/07/16 00:15 500 MLS/HR Sodium Chloride 1,000 ml @ 999 mls/hr Q1H1M STAT IV 08/07/16 00:01 08/07/16 01:01 DC 08/07/16 00:01 999 MLS/HR Sodium Chloride (Nss 1000ml) 1,000 ml @ 999 mls/hr Q1H1M STAT IV 08/07/16 05:08 08/07/16 06:08 DC 08/07/16 05:20 999 MLS/HR ED Course 2050: The patient was evaluated in room A8. A complete history and physical examination were performed. 2114: Ordered Zofran Odt 4 mg PO 0030: This patient was signed out to Dr. Grant at the change in shifts. Medical Decision Differential diagnosis: Etiologies such as mood disorder, infection, hypoglycemia, electrolyte abnormalities, cardiac sources, intracerebral event, toxicologic, neurologic, as well as others were entertained. Nursing notes reviewed. The patient is a 21-year-old male who presented to the emergency department for a 302 petition evaluation. The patient was unable to be medically cleared in the emergency department because of alcohol intoxication. The patient was awake and alert. He was able to answer questions appropriately. The patient has a history of depression in the past. He has been admitted to our facility previously for similar complaints. I discussed the patient's laboratory results with him. The patient was evaluated by the emergency Department mental health embedded case manager. Because the patient was unable to be medically cleared he was signed out to the nighttime physician at change of shift. Please see his note for continuation of patient's care. Impression Primary Impression: Depression Additional Impressions: Suicidal ideation Alcohol intoxication Scribe Attestation The scribe's documentation has been prepared under my direction and personally reviewed by me in its entirety. I confirm that the note above accurately reflects all work, treatment, procedures, and medical decision making performed by me. Departure Information Dispostion Still a Patient Referrals No Doctor, Assigned (PCP) Patient Instructions [facility] Problem Qualifiers Primary Impression: Depression Depression Type: unspecified Qualified Codes: F32.9 - Major depressive disorder, single episode, unspecified Additional Impressions: Alcohol intoxication Complication of substance-induced condition: uncomplicated Qualified Codes: F10.120 - Alcohol abuse with intoxication, uncomplicated
[2016-08-06] MEDS ORDERED: SERT50TA PO (21:41)
[2016-08-06 21:48] LABS: BASO % 0.2 %; BASO ABS # 0.03 K/uL (0-0.2); COMPLETE YES; EOS % 0.2 %; HEMATOCRIT 48.3 % (42-52); IG% 0.4 %; LYMPH % 18.5 %; LYMPH ABS # 3.62 K/uL (1.2-3.4); MEAN CELL VOLUME 90.8 fL (80-100); MEAN CORPUSCULAR HEMOGLOBIN 32.3 pg (25-34); MEAN CORPUSCULAR HGB CONC 35.6 g/dl (32-36); MEAN PLATELET VOLUME 9.4 fL (7.4-10.4); MONO % 3.6 %; NEUT % 77.1 %; PLATELET COUNT 352 K/uL (130-400); RED BLOOD COUNT 5.32 M/uL (4.7-6.1); WHITE BLOOD COUNT 19.58 K/uL (4.8-10.8)
[2016-08-06 22:05] LABS: BUN/CREATININE RATIO 13.5 (10-20); CREATININE 1.1 mg/dl (0.60-1.40)
[2016-08-06 22:16] LABS: THYROID STIMULATING HORMONE 0.28 uIu/ml (0.300-4.500)
[2016-08-06 22:25] LABS: CALCIUM 9.5 mg/dl (8.5-10.1)
[2016-08-07] MEDS ORDERED: SODIUM CHLORIDE 0.9% 1000ML 1,000 ML IV STA ×2 (00:01→05:08)
[2016-08-07] MEDS ORDERED: MULTI-VITAMIN INFUSION INJ 10 ML, THIAMINE HCL INJ 100 MG, FoLIC ACID INJ 1 MG in SODIU... IV ONE (00:15)
[2016-08-07 04:30] VITALS: O2SAT 97
[2016-08-07 04:51] LABS: URINE APPEARANCE CLEAR (CLEAR); URINE BILIRUBIN NEG (NEG); URINE COLOR YELLOW; URINE NITRITE NEG (NEG); URINE SPECIFIC GRAVITY 1.028 (1.000-1.030); UROBILINOGEN NEG (NEG)
[2016-08-07 04:54] LABS: MANUAL MICROSCOPIC REQUIRED? NO; REVIEW REQ? NO
[2016-08-07 05:10] LABS: BENZODIAZEPINE, URINE NEG (NEG); COCAINE,URINE NEG (NEG); PHENCYCLIDINE, URINE NEG (NEG)
[2016-08-07] MEDS ORDERED: LORAZEPAM 1 MG TAB PO PRN ×2 (06:00→10:15)
[2016-08-07] MEDS ORDERED: LORAZEPAM 1 MG TAB SL STA (06:06)
[2016-08-07] MEDS ORDERED: ALUMINUM/MAGNESIUM SUSP 30 ML UDC PO PRN (06:15)
[2016-08-07] MEDS ORDERED: MAGNESIUM HYDROXIDE SUSP 30 ML UDC PO PRN (06:15)
[2016-08-07] MEDS ORDERED: SODIUM CHLORIDE 0.65% NA SOLN 45 ML (OCEAN) PRN (06:15)
[2016-08-07] MEDS ORDERED: NURSING VERBAL MED ORDER ONE (06:15)
[2016-08-07] MEDS ORDERED: BISMUTH SUBSALICYLATE PER ML OMNICELL CHARGE PO PRN (06:15)
[2016-08-07] MEDS ORDERED: ACETAMINOPHEN 325 MG TAB PO PRN (06:15)
--- NOTE | 2016-08-07 06:40 | EMERGENCY ROOM VISIT NOTE ---
ED Visit Note First contact with patient: 00:02 21 yr old male arrived earlier in evening for evaluation of mental health disorder. Drinking alcohol making suicidal statements to friends. He has long mental health history with recent admission. He is not going to his appointments and has stopped taking his medications. He is dehydrated with low blood sugar likely secondary to the fact he admits poor eating/drinking last few days. BG up with just eating/drinking here. Given 1L Banana bag along with 2 L NSS bolus. Stable and otherwise no issues throughout night. Did have mild bump WBC which is somewhat chronic for him. CXR clear and UA unremarkable other than ketones which were expected. He is unwilling to participate in his treatment/care and thus given history and 302 findings I do not feel it is safe for discharge home. [address] [place] [address] is in agreement. I have signed [address] [place] and he will be admitted to [address] [place] [address].
--- NOTE | 2016-08-07 07:57 | DIAGNOSTIC IMAGING REPORT ---
SINGLE VIEW CHEST CLINICAL HISTORY: Vomiting. FINDINGS: 2 AP, portable, upright chest radiographs are obtained. No prior studies are available for comparison at the time of dictation. The examination is degraded by portable technique and patient rotation. The cardiomediastinal silhouette is unremarkable. The lungs and pleural spaces are clear. No pneumothorax is seen. The bony thorax is grossly intact. IMPRESSION: No active disease in the chest. Electronically signed by: Gerald Oseguera M.D. 08/07/2016 7:55 AM Dictated Date/Time: 08/07/2016 7:54 AM
[2016-08-07 09:42] VITALS: BP 96/55; PULSE 98; TEMP 36.6
[2016-08-07 11:54] VITALS: BMI 20.9
[2016-08-07 12:43] VITALS: BP 130/76; PULSE 98; TEMP 36.8
[2016-08-07 13:14] VITALS: BP 130/76; PULSE 98; TEMP 36.8; Ht 172.7 cm; Wt 62.4 kg
[2016-08-07] MEDS: THIAMINE HCL 100 MG TAB PO SCH (13:15)
[2016-08-07] MEDS ORDERED: NICOTINE 14 MG/24 HR TDSY TD ONE (13:27)
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
[2016-08-07 16:05] VITALS: BP 136/79; PULSE 87; TEMP 36.8
[2016-08-07 20:44] VITALS: BP 144/87; PULSE 111; TEMP 36.8
[2016-08-07] MEDS: SERTRALINE HCL 50 MG TAB PO SCH (21:09)
[2016-08-07] MEDS: hydrOXYzine HCL 25 MG TAB PO PRN ×2 (21:09→23:28)
[2016-08-08 07:06] VITALS: BP_SYST 111; BP_SYST 121; BP_DIAS 74; BP_DIAS 76; PULSE 55; PULSE 63; TEMP 36.3
[2016-08-08] MEDS: NICOTINE 14 MG/24 HR TDSY TD SCH (07:29)
[2016-08-08] MEDS: THIAMINE HCL 100 MG TAB PO SCH (07:29)
[2016-08-08] MEDS: MULTIVITAMIN TAB PO SCH (07:29)
[2016-08-08] MEDS: hydrOXYzine HCL 25 MG TAB PO PRN ×2 (07:29→22:44)
[2016-08-08 08:05] VITALS: BP 127/79; PULSE 76; TEMP 36.3
[2016-08-08 12:47] VITALS: BP 125/79; TEMP 36.1
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
[2016-08-08 16:10] VITALS: BP 123/75; PULSE 78; TEMP 36.7
[2016-08-08 20:49] VITALS: BP 116/79; PULSE 89; TEMP 36.4
[2016-08-08] MEDS: SERTRALINE HCL 50 MG TAB PO SCH (21:07)
[2016-08-08] MEDS: GABAPENTIN 300 MG CAP PO SCH (21:07)
[2016-08-09 01:04] VITALS: BP 127/82; PULSE 62; PULSE 63; TEMP 36.8
[2016-08-09] MEDS: hydrOXYzine HCL 25 MG TAB PO PRN ×2 (01:07→22:49)
[2016-08-09 07:02] VITALS: BP_SYST 114; BP_SYST 124; BP_DIAS 78; BP_DIAS 84; PULSE 69; PULSE 86; TEMP 36.8
[2016-08-09 07:27] LABS: BASO % 0.1 %; BASO ABS # 0.01 K/uL (0-0.2); COMPLETE YES; EOS % 2.4 %; HEMATOCRIT 43.1 % (42-52); IG% 0.1 %; LYMPH % 40.5 %; LYMPH ABS # 3.42 K/uL (1.2-3.4); MEAN CORPUSCULAR HEMOGLOBIN 31.7 pg (25-34); MEAN CORPUSCULAR HGB CONC 35.3 g/dl (32-36); MEAN PLATELET VOLUME 9.6 fL (7.4-10.4); MONO % 9.7 %; NEUT % 47.2 %; PLATELET COUNT 280 K/uL (130-400); RED BLOOD COUNT 4.79 M/uL (4.7-6.1); WHITE BLOOD COUNT 8.45 K/uL (4.8-10.8)
[2016-08-09 07:57] LABS: CHOLESTEROL/HDL RATIO 2.9
[2016-08-09 08:49] VITALS: BP 114/73; PULSE 74; TEMP 36.5
[2016-08-09] MEDS: THIAMINE HCL 100 MG TAB PO SCH (08:52)
[2016-08-09] MEDS: NICOTINE 14 MG/24 HR TDSY TD SCH (08:52)
[2016-08-09] MEDS: MULTIVITAMIN TAB PO SCH (08:52)
[2016-08-09] MEDS ORDERED: NICOTINE POLACRILEX 2 MG GUM MT PRN (11:15)
--- NOTE | 2016-08-09 13:22 | Psychiatric Progress Notes ---
Progress Note Date of Service Aug 09, 2016. Interval History 21 yo male, noncompliance with Zoloft following last admission, admit 302 for SI while intoxicated, drinking excessively and even by himself as self medication. Zoloft restarted on admission. Chief Complaint "OK". Subjective Patient was seen & assessed interval progress reviewed with Treatment Team. Nursing reports that the patient is now refusing to consider going to rehab and had wanted to leave. He requested a 72 hr notice but he is on a 302 involuntary commitment. He had a family meeting with his father today. FAther supports him going to rehab. The patient is still not convinced that he wants to do that, saying he wants to believe that he can control it on his own and therefore wants "to think about it". He continues to have cravings for alcohol , although less than yesterday. He is having cold sweats as well. He has not triggered the use of ativan on the AWSS. He denies suicidal thoughts today, but mood and affect are depressed as he looks at the impact of his addictions on his family. He is requesting an increase to zoloft, knowing that he felt better when he was on it. Review of Systems Constitutional: + chills ENT: No dental problems, No hearing loss, No nasal symptoms, No problem reported, No sore throat, No tinnitus, No trouble swallowing, No unusual epistaxis Respiratory: No cough, No dyspnea at rest, No dyspnea on exertion, No hemoptysis, No problem reported, No shortness of breath, No sputum, No wheezing Cardiovascular: No PND, No chest pain, No claudication, No edema, No orthopnea , No palpitations, No problem reported Abdomen: No GI bleeding, No constipation, No diarrhea, No nausea, No pain, No problem reported, No vomiting Musculoskeletal: No calf pain, No joint pain, No muscle pain, No problem reported, No swelling Neurologic: No balance problems, No memory loss, No numbness/tingling, No paralysis, No problem reported, No vertigo, No weakness Psychiatric: + depression symptoms, + substance abuse Integumentary: No bleeding, No color change, No itch, No new/changing skin lesions, No problem reported, No rash Sleep Information Total Hours of Sleep: 5.50 Meal Information Percent of Breakfast Consumed: 100 Percent of Lunch Consumed: 100 Percent of Dinner Consumed: 100 Mental Status Exam During interview pt is: alert and oriented Appearance: appropriately groomed Motor behavior is: no abnormal motor movements Speech: normal in rate, rhythm & volume Affect: depressed, flat Mood is: depressed Thought process: clear, coherent Thought content: reality based without delusions Suicidal thought are: denied Homicidal thoughts are: denied Hallucinations: denies auditory, denies visual Cognition: memory grossly intact, attention grossly intact, language grossly intact Intelligence estimated to be: consistent with level of education Insight: limited Judgement: limited Impression Patient is ambivalent about going to rehab. Has signed [facility] to make referrals but still wants to think about whether he will go. Still having cravings and withdrawal symptoms that put him at risk for immediate relapse if discharge, which then leads to mood instability and suicidality. Today will increase Zoloft to 100 mg. daily and continue lamictal augmentation. He is here on a 302 , but will not likely meet criteria for a 303. Continued Inpatient Care continues to require inpatient hospitalization for safety and monitoring Plan (1) Bipolar disorder, unspecified 08/08/16--reviewed that diagnosis can be difficult within the setting of polysubstance use disorder, reviewed that not advised that been on SSRI alone, particularly given age/FDA black box warnings. He does note some response prior to becoming noncompliant and currently presenting with mixed symptoms. Risks/benefits/alternatives reviewed re: lamictal. Discussion included but was not limited to risks of Jose's Eron reaction. He agreed to a trial of 25 mg daily with understanding that dose will need to be titrated in 2 weeks and likely again after that. Reviewed that in interim would recommend trial of gabapentin for sleep/anxiety as not habit forming and may also help decrease ETOH cravings. 08/09 - Increase zoloft to 100 mg. daily - Continue lamictal 25 mg. daily (2) EtOH dependence Neurontin as above AWSS protocol with prn Ativan if needed this and polysubstance abuse would be best addressed in inpatient rehab setting , patient desires to involve family/friends in that decision prior to agreeing to that level of care 08/09 - Recovery protocol (3) Nicotine dependence on nicotine replacement product while inpatient, he has been counseled but main focus is maintaining sobriety from drugs and ETOH. Will readdress smoking cessation counseling prior to discharge. Discharge / Aftercare Planning Psychiatrist: Name: Ada Murphy Appointment Notes: You will be assigned a psychiatrist after your In[facility] appointment Therapist: Name: Ada Murphy Date of Appointment: Aug 19, 2016 Time of Appointment: 8:30am Visit Code E&M Code: 63634 Risk Factors Assessment Male: Yes : Yes /single/: Yes Higher / Fall in social status: No Access to guns: No Health problems: No Mental Health Diagnoses: Yes Substance use disorders: Yes Previous psychiatric stay: Yes Smoker: Yes Protective Factors Assessment Anabaptist beliefs: No : No Responsible for young children: No Employed: No Stable relationships: No Supportive family: Yes Data Vital Signs Last 24 Hrs: Date Time Temp Pulse Resp B/P Pulse Ox O2 Delivery O2 Flow Rate FiO2 08/09/16 08:49 36.5 74 14 114/73 08/09/16 07:02 36.8 69 16 114/78 86 124/84 08/09/16 01:04 36.8 62 16 127/82 63 08/08/16 20:49 36.4 89 16 116/79 08/08/16 16:10 36.7 78 16 123/75 Meds Administered Last 24 Hrs: Meds Administered (Past 24Hrs) Medications (Trade) Dose Ordered Sig/Baljeet Route Start Time Stop Time Status Last Admin Dose Admin Multivitamins (Multivitamin Tab) 1 tab QAM PO 08/08/16 09:00 09/07/16 08:59 08/09/16 08:52 1 TAB Sertraline HCl (Zoloft Tab) 50 mg QPM PO 08/07/16 21:00 09/06/16 20:59 08/08/16 21:07 50 MG Nicotine (Nicoderm Cq 14MG Patch) 1 patch QAM TD 08/08/16 09:00 09/07/16 08:59 08/08/16 07:29 1 PATCH Nicotine (Nicoderm Cq 14MG Patch) 1 patch 1327 ONCE TD 08/07/16 13:27 08/07/16 13:38 DC 08/07/16 14:24 1 PATCH Lamotrigine (Lamictal Tab) 25 mg QPM PO 08/08/16 21:00 09/07/16 20:59 08/08/16 21:07 25 MG Gabapentin (Neurontin Cap) 300 mg HS PO 08/08/16 22:00 09/07/16 21:59 08/08/16 21:07 300 MG Lab Results Last 24 Hrs: Last 24 Hours Test 08/09/16 07:00 White Blood Count 8.45 K/uL Red Blood Count 4.79 M/uL Hemoglobin 15.2 g/dL Hematocrit 43.1 % Mean Corpuscular Volume 90.0 fL Mean Corpuscular Hemoglobin 31.7 pg Mean Corpuscular Hemoglobin Concent 35.3 g/dl Platelet Count 280 K/uL Mean Platelet Volume 9.6 fL Neutrophils (%) (Auto) 47.2 % Lymphocytes (%) (Auto) 40.5 % Monocytes (%) (Auto) 9.7 % Eosinophils (%) (Auto) 2.4 % Basophils (%) (Auto) 0.1 % Neutrophils # (Auto) 3.99 K/uL Lymphocytes # (Auto) 3.42 K/uL Monocytes # (Auto) 0.82 K/uL Eosinophils # (Auto) 0.20 K/uL Basophils # (Auto) 0.01 K/uL RDW Standard Deviation 41.8 fL RDW Coefficient of Variation 12.6 % Immature Granulocyte % (Auto) 0.1 % Immature Granulocyte # (Auto) 0.01 K/uL Random Glucose 90 mg/dl Triglycerides Level 87 mg/dl Cholesterol Level 147 mg/dl HDL Cholesterol 51 mg/dl LDL Cholesterol, Calculated 79 mg/dl VLDL Cholesterol, Calculated 17 mg/dl Cholesterol/HDL Ratio 2.9
[2016-08-09 13:26] VITALS: BP 127/81; PULSE 78; TEMP 36.9
[2016-08-09 16:01] VITALS: BP 123/80; PULSE 67; TEMP 36.5
[2016-08-09 20:07] VITALS: BP 125/81; PULSE 83; TEMP 36.4
[2016-08-09] MEDS: GABAPENTIN 300 MG CAP PO SCH (21:26)
[2016-08-10] MEDS: hydrOXYzine HCL 25 MG TAB PO PRN ×2 (01:01→23:33)
[2016-08-10 07:11] VITALS: BP_SYST 113; BP_SYST 124; BP_DIAS 77; BP_DIAS 85; PULSE 71; PULSE 72; TEMP 36.5
[2016-08-10 08:16] VITALS: BP 124/85; PULSE 71; TEMP 36.5
[2016-08-10] MEDS: MULTIVITAMIN TAB PO SCH (08:20)
[2016-08-10] MEDS: THIAMINE HCL 100 MG TAB PO SCH (08:20)
[2016-08-10] MEDS: NICOTINE 14 MG/24 HR TDSY TD SCH (08:20)
[2016-08-10] MEDS: SERTRALINE HCL 100 MG TAB PO SCH (08:20)
--- NOTE | 2016-08-10 09:48 | Psychiatric Progress Notes ---
Progress Note Date of Service Aug 10, 2016. Interval History 21 yo male, noncompliance with Zoloft following last admission, admit 302 for SI while intoxicated, drinking excessively and even by himself as self medication. Zoloft restarted on admission. Chief Complaint "A little more stable.". Subjective Patient was seen & assessed interval progress reviewed with Treatment Team. The patient says that he has decided to go to IOP and not rehab. He had a discussion with his father and his girlfriend yesterday about this, and both are willing to help him be accountable. He will have a phone call with each of them daily, attend IOP and and plan on 90 meetings in 90 days. He continues to deny SI. He believes that he can manage his alcoholism with the OP support, but agrees that if he is unable to maintain sobriety, that he will go to rehab. He also wants to return to school. Review of Systems Constitutional: No chills, No fatigue, No fever, No problem reported, No sweats , No weakness, No weight loss ENT: No dental problems, No hearing loss, No nasal symptoms, No problem reported, No sore throat, No tinnitus, No trouble swallowing, No unusual epistaxis Respiratory: No cough, No dyspnea at rest, No dyspnea on exertion, No hemoptysis, No problem reported, No shortness of breath, No sputum, No wheezing Cardiovascular: No PND, No chest pain, No claudication, No edema, No orthopnea , No palpitations, No problem reported Abdomen: No GI bleeding, No constipation, No diarrhea, No nausea, No pain, No problem reported, No vomiting Musculoskeletal: No calf pain, No joint pain, No muscle pain, No problem reported, No swelling Neurologic: No balance problems, No memory loss, No numbness/tingling, No paralysis, No problem reported, No vertigo, No weakness Psychiatric: + depression symptoms (improving) Integumentary: No bleeding, No color change, No itch, No new/changing skin lesions, No problem reported, No rash Sleep Information Total Hours of Sleep: 4.50 Meal Information Percent of Breakfast Consumed: 95 Percent of Lunch Consumed: 100 Percent of Dinner Consumed: 75 Mental Status Exam During interview pt is: alert and oriented Appearance: appropriately groomed Motor behavior is: no abnormal motor movements Speech: normal in rate, rhythm & volume Affect: depressed, blunted Mood is: depressed Thought process: clear, coherent Thought content: reality based without delusions Suicidal thought are: denied Homicidal thoughts are: denied Hallucinations: denies auditory, denies visual Cognition: memory grossly intact, attention grossly intact, language grossly intact Intelligence estimated to be: consistent with level of education Insight: limited Judgement: limited Impression Patient has decided to go to [facility] and no rehab. He is willing to go to 90 in 90 , and reach out to his girlfriend and his father to hold him accountable for his sobriety. He denies SI and feels that he will be ready to go at the end of the 302 which expires tomorrow. Continued Inpatient Care continues to require inpatient hospitalization for safety and monitoring Plan (1) Bipolar disorder, unspecified 08/08/16--reviewed that diagnosis can be difficult within the setting of polysubstance use disorder, reviewed that not advised that been on SSRI alone, particularly given age/FDA black box warnings. He does note some response prior to becoming noncompliant and currently presenting with mixed symptoms. Risks/benefits/alternatives reviewed re: lamictal. Discussion included but was not limited to risks of Jose's Eron reaction. He agreed to a trial of 25 mg daily with understanding that dose will need to be titrated in 2 weeks and likely again after that. Reviewed that in interim would recommend trial of gabapentin for sleep/anxiety as not habit forming and may also help decrease ETOH cravings. 08/09 - Increase zoloft to 100 mg. daily - Continue lamictal 25 mg. daily (2) EtOH dependence Neurontin as above AWSS protocol with prn Ativan if needed this and polysubstance abuse would be best addressed in inpatient rehab setting , patient desires to involve family/friends in that decision prior to agreeing to that level of care 08/09 - Recovery protocol 08/10 -Patient refusing rehab and so will refer to [facility] - Will provide patient with list of area AA meetings. (3) Nicotine dependence on nicotine replacement product while inpatient, he has been counseled but main focus is maintaining sobriety from drugs and ETOH. Will readdress smoking cessation counseling prior to discharge. Discharge / Aftercare Planning Psychiatrist: Name: Ada Murphy Appointment Notes: You will be assigned a psychiatrist after your In[facility] appointment Therapist: Name: Ada Murphy Date of Appointment: Aug 19, 2016 Time of Appointment: 8:30am Visit Code E&M Code: 17485 Risk Factors Assessment Male: Yes : Yes /single/: Yes Higher / Fall in social status: No Access to guns: No Health problems: No Mental Health Diagnoses: Yes Substance use disorders: Yes Previous psychiatric stay: Yes Smoker: Yes Protective Factors Assessment Advent beliefs: No : No Responsible for young children: No Employed: No Stable relationships: No Supportive family: Yes Data Vital Signs Last 24 Hrs: Date Time Temp Pulse Resp B/P Pulse Ox O2 Delivery O2 Flow Rate FiO2 08/10/16 08:16 36.5 71 16 124/85 08/10/16 07:11 36.5 71 16 113/77 72 124/85 08/09/16 20:07 36.4 83 18 125/81 08/09/16 16:01 36.5 67 18 123/80 08/09/16 13:26 36.9 78 14 127/81 Meds Administered Last 24 Hrs: Meds Administered (Past 24Hrs) Medications (Trade) Dose Ordered Sig/Baljeet Route Start Time Stop Time Status Last Admin Dose Admin Lamotrigine (Lamictal Tab) 25 mg QPM PO 08/08/16 21:00 09/07/16 20:59 08/09/16 21:03 25 MG Gabapentin (Neurontin Cap) 300 mg HS PO 08/08/16 22:00 09/07/16 21:59 08/09/16 21:26 300 MG Nicotine Polacrilex (Nicorette 2MG Gum) 1 piece Q1H PRN MT 08/09/16 11:15 09/08/16 11:14 08/10/16 09:00 1 PIECE Sertraline HCl (Zoloft Tab) 100 mg QAM PO 08/10/16 09:00 09/09/16 08:59 08/10/16 08:20 100 MG Lab Results Last 24 Hrs: 08/09/16 07:00 Red Blood Count 4.79, Mean Corpuscular Volume 90.0, Mean Corpuscular Hemoglobin 31.7, Mean Corpuscular Hemoglobin Concent 35.3, Mean Platelet Volume 9.6, Neutrophils (%) (Auto) 47.2, Lymphocytes (%) (Auto) 40.5, Monocytes (%) (Auto) 9.7, Eosinophils (%) (Auto) 2.4, Basophils (%) (Auto) 0.1, Neutrophils # (Auto) 3.99, Lymphocytes # (Auto) 3.42, Monocytes # (Auto) 0.82, Eosinophils # (Auto) 0.20, Basophils # (Auto) 0.01 08/06/16 21:36 08/09/16 07:00 Test 08/06/16 21:36 08/07/16 00:08 08/07/16 04:40 08/09/16 07:00 Anion Gap 17.0 mmol/L (3-11) Est Creatinine Clear Calc Drug Dose 92.2 ml/min Estimated GFR () 109.1 Estimated GFR (Non- 94.1 BUN/Creatinine Ratio 13.5 (10-20) Calcium Level 9.5 mg/dl (8.5-10.1) Total Bilirubin 0.5 mg/dl (0.2-1) Direct Bilirubin 0.1 mg/dl (0-0.2) Aspartate Amino Transf (AST/SGOT) 33 U/L (15-37) Alanine Aminotransferase (ALT/SGPT) 36 U/L (12-78) Alkaline Phosphatase 76 U/L (45-117) Total Protein 8.8 gm/dl (6.4-8.2) Albumin 5.2 gm/dl (3.4-5.0) Thyroid Stimulating Hormone (TSH) 0.280 uIu/ml (0.300-4.500) Free Thyroxine 1.27 ng/dl (0.80-1.60) Ethyl Alcohol mg/dL 262.0 mg/dl (0-3) Bedside Glucose 93 mg/dl (70-99) Urine Color YELLOW Urine Appearance CLEAR (CLEAR) Urine pH 5.0 (4.5-7.5) Urine Specific [place] 1.028 (1.000-1.030) Urine Protein NEG (NEG) Urine Glucose (UA) 3+ (NEG) Urine Ketones 3+ (NEG) Urine Occult Blood NEG (NEG) Urine Nitrite NEG (NEG) Urine Bilirubin NEG (NEG) Urine Urobilinogen NEG (NEG) Urine Leukocyte Esterase NEG (NEG) Urine Opiates Screen NEG (NEG) Urine Methadone, Qualitative NEG (NEG) Urine Barbiturates NEG (NEG) Urine Phencyclidine (PCP) Level NEG (NEG) Ur Amphetamine/Methamphetamine NEG (NEG) MDMA (Ecstasy) Screen NEG (NEG) Urine Benzodiazepines Screen NEG (NEG) Urine Cocaine Metabolite NEG (NEG) Urine Marijuana (THC) POS (NEG) White Blood Count 8.45 K/uL (4.8-10.8) Red Blood Count 4.79 M/uL (4.7-6.1) Hemoglobin 15.2 g/dL (14.0-18.0) Hematocrit 43.1 % (42-52) Mean Corpuscular Volume 90.0 fL (80-100) Mean Corpuscular Hemoglobin 31.7 pg (25-34) Mean Corpuscular Hemoglobin Concent 35.3 g/dl (32-36) Platelet Count 280 K/uL (130-400) Mean Platelet Volume 9.6 fL (7.4-10.4) Neutrophils (%) (Auto) 47.2 % Lymphocytes (%) (Auto) 40.5 % Monocytes (%) (Auto) 9.7 % Eosinophils (%) (Auto) 2.4 % Basophils (%) (Auto) 0.1 % Neutrophils # (Auto) 3.99 K/uL (1.4-6.5) Lymphocytes # (Auto) 3.42 K/uL (1.2-3.4) Monocytes # (Auto) 0.82 K/uL (0.11-0.59) Eosinophils # (Auto) 0.20 K/uL (0-0.5) Basophils # (Auto) 0.01 K/uL (0-0.2) RDW Standard Deviation 41.8 fL (36.4-46.3) RDW Coefficient of Variation 12.6 % (11.5-14.5) Immature Granulocyte % (Auto) 0.1 % Immature Granulocyte # (Auto) 0.01 K/uL (0.00-0.02) Triglycerides Level 87 mg/dl (0-150) Cholesterol Level 147 mg/dl (0-200) HDL Cholesterol 51 mg/dl LDL Cholesterol, Calculated 79 mg/dl VLDL Cholesterol, Calculated 17 mg/dl Cholesterol/HDL Ratio 2.9
[2016-08-10] MEDS ORDERED: NURSING VERBAL MED ORDER ONE (14:00)
[2016-08-10] MEDS: GABAPENTIN 300 MG CAP PO SCH (21:32)
[2016-08-11] MEDS: hydrOXYzine HCL 25 MG TAB PO PRN (00:46)
[2016-08-11 07:07] VITALS: BP_SYST 115; BP_SYST 116; BP_DIAS 75; BP_DIAS 81; PULSE 71; TEMP 36.6
[2016-08-11] MEDS: SERTRALINE HCL 100 MG TAB PO SCH (08:39)
[2016-08-11] MEDS: MULTIVITAMIN TAB PO SCH (08:39)
[2016-08-11] MEDS: THIAMINE HCL 100 MG TAB PO SCH (08:39)
[2016-08-11] MEDS: NICOTINE 14 MG/24 HR TDSY TD SCH (08:41)
[2016-08-11] MEDS ORDERED: NRN300 PO (09:33)
[2016-08-11] MEDS ORDERED: LMC25 PO (09:33)
[2016-08-11] MEDS ORDERED: ZLF/100 PO (09:33)
--- NOTE | 2016-08-11 09:42 | Discharge Instructions ---
Discharge Information Report Includes Report will include the: Discharge Instructions & Summary Admission Admission Date / Time: Aug 07, 2016 at 06:05 Reason for Admission: Depressive Disorder, Alcohol Dependence, 302, Discharge Discharge Diagnosis / Problem: Bipolar disorder, depressed and alcohol dependence Condition at Discharge: Fair Discharge Goals Goal(s): Decrease discomfort, Improve disease control, Prevent Disease Progression Activity Recommendations Activity Limitations: resume your previous activity . Instructions / Follow-Up Instructions / Follow-Up . SPECIAL CARE INSTRUCTIONS: 1. Follow through with your scheduled aftercare appointments. If unable to keep an appointment, please call to reschedule. 2. Take your medication only as prescribed. Medication should not be changed or stopped without the approval of your doctor. In the event of worsening symptoms or concerns about side effects, contact your doctor immediately. 3. Utilize new healthy coping skills, anger management skills, and stress management skills learned during your hospitalization. Journal feelings and process them with a support person. Identify stressors or situations that may result in relapse, deterioration or inappropriate behaviors and develop a plan to deal with those issues. 4. If your coping skills are ineffective and you are in crisis, contact your outpatient providers for direction. If unable to reach your providers, please call the CAN HELP LINE AT or go to the closest Emergency Room. 5. Avoid alcohol and un-prescribed drugs. 6. You have been provided with the Mental Health Advance Directives Pamphlet for your review. AFTERCARE APPOINTMENTS: * Please call your insurance company prior to your scheduled appointment to confirm your aftercare providers are covered. Take your insurance information to your appointments. . Discharge / Aftercare Planning Psychiatrist: Name: Ada Murphy Appointment Notes: You will be assigned a psychiatrist after your In[facility] appointment Therapist: Name Of Therapist: Ada Murphy Date of Appointment: Aug 19, 2016 Time of Appointment: 8:30am . Follow-Up Care Plan for Follow-Up Care: The patient will have an intake for psychiatric services at [facility] on 08/19 Current Hospital Diet Patient's current hospital diet: Regular Diet Discharge Diet Recommended Diet: Regular Diet Procedures Procedures Performed: No Pending Studies Pending Studies at Discharge: No Medical Emergencies . Who to Call and When: Medical Emergencies: For questions or emergencies related to your hospital stay, please contact the Inpatient Behavioral Health Unit at [phone]. A preparer making department is on-call 14/11 for the Behavioral Health Unit for emergencies At any time you feel your situation is an emergency, you may also call 911 immediately. . Non-Emergent Contact Non-Emergency issues call your: Primary Care Provider, Psychiatrist Advance Directives Existing Advance Directive: No Do You Have an Existing Mental: No Existing Living Will: No Existing Power of Computer Technician: No Advance Directives Info Given: To Pt/S.O. Advance Directives Reason: Declines as Mental Health Visit. Discharge Summary Admission HPI Per the Admitting provider: Please see the attached H&P Hospital Course (1) Bipolar disorder, unspecified 08/08/16--reviewed that diagnosis can be difficult within the setting of polysubstance use disorder, reviewed that not advised that been on SSRI alone, particularly given age/FDA black box warnings. He does note some response prior to becoming noncompliant and currently presenting with mixed symptoms. Risks/benefits/alternatives reviewed re: lamictal. Discussion included but was not limited to risks of Jose's Eron reaction. He agreed to a trial of 25 mg daily with understanding that dose will need to be titrated in 2 weeks and likely again after that. Reviewed that in interim would recommend trial of gabapentin for sleep/anxiety as not habit forming and may also help decrease ETOH cravings. 08/09 - Increase zoloft to 100 mg. daily - Continue lamictal 25 mg. daily (2) EtOH dependence Neurontin as above AWSS protocol with prn Ativan if needed this and polysubstance abuse would be best addressed in inpatient rehab setting , patient desires to involve family/friends in that decision prior to agreeing to that level of care 08/09 - Recovery protocol 08/10 -Patient refusing rehab and so will refer to [facility] - Will provide patient with list of area AA meetings. (3) Nicotine dependence on nicotine replacement product while inpatient, he has been counseled but main focus is maintaining sobriety from drugs and ETOH. Will readdress smoking cessation counseling prior to discharge. Risk Factors Assessment Male: Yes : Yes /single/: Yes Higher / Fall in social status: No Access to guns: No Health problems: No Mental Health Diagnoses: Yes Substance use disorders: Yes Previous psychiatric stay: Yes Smoker: Yes Protective Factors Assessment Bahai beliefs: No : No Responsible for young children: No Employed: No Stable relationships: No Supportive family: Yes Day of Discharge Assessment COURSE OF HOSPITALIZATION: During the patient's 4 day stay, he was stabilized on Zoloft 100 mg daily. He did some minor GI distress. Prior to admission, the patient had not been compliant with prearranged psychiatric aftercare following his discharge from our unit in April and he had stopped taking his medications. He had relapsed on alcohol and had voiced suicidal thinking to friends. During his stay, his mood improved. Her primary recommendation was to consider inpatient rehabilitation which he refused. He did agree to go to [facility] feeling that he could with some support, manage his own alcoholism. Family meeting was held with his father who was supportive and encouraging him to consider rehabilitation. Patient denied any further suicidal thinking throughout his stay. Although he voiced commitment to trying to regain sobriety, he did not appear to have the investment in that treatment. He was somewhat resistant to considering AA and again refused rehabilitation. He worked on a safety plan while he is here and agreed to return to the emergency room in the event of severe depression or suicidality. During his stay the AWSS protocol was used for alcohol withdrawal. He did experience minor symptoms. Neurontin 300 mg at bedtime was added in part for alcohol withdrawal but also to mediate anxiety. He was provided with supplementation of thiamine and multivitamin in view of alcohol abuse. DAY OF DISCHARGE ASSESSMENT: Today the patient's 302 expires. He meets no criteria for a 303 and is safe for discharge. He continues to deny any further suicidal thinking. He agrees to use his safety plan in the emergency room in the event of mood deterioration. He has forward thinking, thinking about returning to school and getting a job. Today he is casually and appropriately dressed and groomed. Gait and station are within normal limits. Eye contact is good. Affect is restricted. Speech is of normal rate volume and tone. Thoughts are organized and goal directed, and without evidence of thought disorder. Recent and remote memory are intact per conversation. Intelligence is estimated to be average. Insight and judgment are improved over admission. Laboratory Test 08/06/16 21:36 08/07/16 00:08 08/07/16 04:40 08/09/16 07:00 White Blood Count 19.58 8.45 Red Blood Count 5.32 4.79 Hemoglobin 17.2 15.2 Hematocrit 48.3 43.1 Mean Corpuscular Volume 90.8 90.0 Mean Corpuscular Hemoglobin 32.3 31.7 Mean Corpuscular Hemoglobin Concent 35.6 35.3 Platelet Count 352 280 Mean Platelet Volume 9.4 9.6 Neutrophils (%) (Auto) 77.1 47.2 Lymphocytes (%) (Auto) 18.5 40.5 Monocytes (%) (Auto) 3.6 9.7 Eosinophils (%) (Auto) 0.2 2.4 Basophils (%) (Auto) 0.2 0.1 Neutrophils # (Auto) 15.12 3.99 Lymphocytes # (Auto) 3.62 3.42 Monocytes # (Auto) 0.70 0.82 Eosinophils # (Auto) 0.03 0.20 Basophils # (Auto) 0.03 0.01 RDW Standard Deviation 42.8 41.8 RDW Coefficient of Variation 12.8 12.6 Immature Granulocyte % (Auto) 0.4 0.1 Immature Granulocyte # (Auto) 0.08 0.01 Sodium Level 144 Potassium Level 4.0 Chloride Level 106 Carbon Dioxide Level 21 Anion Gap 17.0 Blood Urea Nitrogen 15 Creatinine 1.10 Est Creatinine Clear Calc Drug Dose 92.2 Estimated GFR () 109.1 Estimated GFR (Non- 94.1 BUN/Creatinine Ratio 13.5 Random Glucose 63 90 Calcium Level 9.5 Total Bilirubin 0.5 Direct Bilirubin 0.1 Aspartate Amino Transferase (AST) 33 Alanine Aminotransferase (ALT) 36 Alkaline Phosphatase 76 Total Protein 8.8 Albumin 5.2 Thyroid Stimulating Hormone (TSH) 0.280 Free Thyroxine 1.27 Ethyl Alcohol mg/dL 262.0 POC Glucose 93 Urine Color YELLOW Urine Appearance CLEAR Urine pH 5.0 Urine Specific [place] 1.028 Urine Protein NEG Urine Glucose (UA) 3+ Urine Ketones 3+ Urine Occult Blood NEG Urine Nitrite NEG Urine Bilirubin NEG Urine Urobilinogen NEG Urine Leukocyte Esterase NEG Urine Synthetic Stimulants Pending Urine Opiates Screen NEG Urine Methadone, Qualitative NEG Urine Barbiturates NEG Urine Phencyclidine (PCP) Level NEG Ur Amphetamine/Methamphetamine NEG MDMA (Ecstasy) Screen NEG Urine Benzodiazepines Screen NEG Urine Cocaine Metabolite NEG Cannabinoids Comment Pending Urine Synthetic Cannabinoids Pending Ur Synthetic Cannabinoids Confirm Pending Urine Marijuana (THC) POS Urine Marijuana (THC Carboxy Acid) Pending Triglycerides Level 87 Cholesterol Level 147 HDL Cholesterol 51 LDL Cholesterol, Calculated 79 VLDL Cholesterol, Calculated 17 Cholesterol/HDL Ratio 2.9 Total Time Total Time Spent (min): Greater than 30 minutes Total Time Included: examination of the patient, discharge planning, medication reconciliation, communication with other providers Tobacco Cessation at Discharge Smoking Status: Current Every Day Smoker FDA approved Prescription: declined med & out pt counseling
[2016-08-11 20:35] LABS: SYNTHETIC CANNABINOIDS QL URIN NEGATIVE (Negative)
== END 2016-08-11 14:10 | disposition home or self-care (01) | DRG 885 ==
LOC: C.EDB 20:45 → C.MHU 08-07 06:05
PROVIDERS: ADMIT Student in an Organized Health Care Education/Training Program; ATTEND Student in an Organized Health Care Education/Training Program
DX: F31.10 Bipolar disorder, current episode manic without psychotic features, unspecified (principal); F19.10 Other psychoactive substance abuse, uncomplicated; F10.20 Alcohol dependence, uncomplicated; F90.9 Attention-deficit hyperactivity disorder, unspecified type; Z91.048 Other nonmedicinal substance allergy status; Z91.012 Allergy to eggs; F17.210 Nicotine dependence, cigarettes, uncomplicated